=== PATIENT | male | born 1940 | race African-American/Black ===

== ENCOUNTER 2020-06-23 18:40 | Observation (INO) ==
[2020-06-23 19:11] LABS: Basophils % 0.3 % (0.0-0.8); Hematocrit 49.4 VOL% (42.0-52.0); Hemoglobin 16.5 GM/DL (14.0-18.0); Immature Granulocytes % 0.3 %; Immature Granulocytes Absolute 0.01 #; Lymphocytes # 0.7 10*3/uL (1.4-4.0); Lymphocytes % 16.8 % (21.2-54.2); Mean Corpuscular HGB Conc 33.4 GM/DL (32-36); Mean Corpuscular Volume 90.8 FL (87-102); Mean Platelet Volume 10.4 FL (9.6-12.0); Monocytes % 8.8 % (1.7-12.7); Neutrophils % 73.8 % (38.7-73.9); Platelet Count 182 T/CUMM (130-400); Red Blood Count 5.44 MC/CUMM (3.8-5.5); Red Cell Distribution Width 13.3 % (9.3-17.3)
[2020-06-23 19:16] LABS: ABG Base Excess 4.2 MMOL/L (-2.5-2.5); ABG Oxygen Saturation 91.6 % (95-100); ABG PCO2 40.2 MM HG (35-48); ABG PH 7.457 (7.35-7.45); ABG PO2 61.3 MM HG (80-95); ABG TCO2 23.4 MMOL/L (23-27); Allen Test Positive; Pt O2 Delivery Device Room Air
[2020-06-23 19:22] LABS: PT Patient Result 10.9 SECS (9.8-11.9)
[2020-06-23 19:30] LABS: Bilirubin,Total 0.7 MG/DL (0.2-1.0); Calcium 9.1 MG/DL (8.5-10.1); Osmolality,Calculated 275.1 MOS/KG (273-304); Total Protein 8.4 G/DL (5.0-7.5)
[2020-06-23 19:56] LABS: Bilirubin,Urine Negative (Negative); Blood, Urine Moderate mg/dL (Negative); Glucose,Urine (UA) Negative (Negative); Ketones,Urine 5 mg/dL (Negative); Mucus,Urine Many /LPF (Occasional); Nitrite,Urine Negative (Negative); Protein,Urine 100 MG/DL; RBC,Urine 46 /HPF (0-4); Urine Appearance Slightly Hazy (Clear); Urine Color Amber (Yellow); Urine Specific Gravity 1.025 (1.001-1.035); Urine Urobilinogen < 2.0 EU/DL (0.2-1.0); WBC,Urine 3 /HPF (0-6)
[2020-06-23] MEDS ORDERED: AZITHROMYCIN INJ 500 MG in SODIUM CHLORIDE 0.9% 250 ML IV ONE (22:00)
[2020-06-23] MEDS: ENOXAPARIN 40 MG/0.4 ML SYRINGE SUBCUT SCH (22:30)
[2020-06-23] MEDS: ASCORBIC ACID 500 MG TABLET PO SCH (22:30)
[2020-06-23] MEDS: FAMOTIDINE 20 MG TABLET PO SCH (22:30)
[2020-06-23] MEDS ORDERED: MEMANTINE 10 MG TABLET PO SCH (22:30)
[2020-06-23] MEDS ORDERED: cefTRIAXone 1,000 MG in SYRINGE 1 EACH IV SCH (22:30)
[2020-06-23] MEDS ORDERED: DEXTROSE 50% 25 GM/50 ML VIAL IV PRN (23:23)
[2020-06-23] MEDS ORDERED: ONDANSETRON 4 MG/2 ML VIAL IV PRN (23:23)
[2020-06-23] MEDS ORDERED: GLUCAGON 1 MG VIAL IM PRN (23:23)
[2020-06-23] MEDS ORDERED: DOCUSATE SODIUM 100 MG CAPSULE PO PRN (23:23)
[2020-06-23] MEDS ORDERED: ACETAMINOPHEN 325 MG TABLET PO PRN (23:23)
[2020-06-23] MEDS ORDERED: SODIUM CHLORIDE 0.9% 1,000 ML IV SCH (23:30)
[2020-06-23] MEDS: LATANOPROST 0.005% OPH SOLN 2.5 ML BOTTLE BOTH EYES SCH (23:54)
[2020-06-23] MEDS: TIMOLOL 0.5% OPH SOLN 5 ML BOTTLE BOTH EYES SCH (23:54)
[2020-06-24 05:46] LABS: Basophils % 0.3 % (0.0-0.8); Hematocrit 47.7 VOL% (42.0-52.0); Hemoglobin 15.8 GM/DL (14.0-18.0); Immature Granulocytes % 0.3 %; Immature Granulocytes Absolute 0.01 #; Lymphocytes # 0.7 10*3/uL (1.4-4.0); Lymphocytes % 20.2 % (21.2-54.2); Mean Corpuscular HGB Conc 33.1 GM/DL (32-36); Mean Corpuscular Volume 93.5 FL (87-102); Mean Platelet Volume 10.8 FL (9.6-12.0); Monocytes % 10.4 % (1.7-12.7); Neutrophils % 68.8 % (38.7-73.9); Platelet Count 165 T/CUMM (130-400); Red Cell Distribution Width 13.2 % (9.3-17.3); White Blood Count 3.6 T/CUMM (4-12)
[2020-06-24 06:03] LABS: Albumin 2.7 G/DL (3.4-5.0); Bilirubin,Total 0.6 MG/DL (0.2-1.0); Calcium 8.8 MG/DL (8.5-10.1); Osmolality,Calculated 275.7 MOS/KG (273-304); Potassium 4.6 MMOL/L (3.5-5.1); Total Protein 7.7 G/DL (5.0-7.5)
[2020-06-24] MEDS: LEVOFLOXACIN INJ 750 MG in PREMIX 1 EACH IV SCH (08:35)
[2020-06-24] MEDS: FAMOTIDINE 20 MG TABLET PO SCH ×2 (08:39→20:33)
[2020-06-24] MEDS: CHOLECALCIFEROL 1,000 UNIT TABLET PO SCH (08:39)
[2020-06-24] MEDS: ZINC GLUCONATE 50 MG TABLET PO SCH (08:39)
[2020-06-24] MEDS: ESCITALOPRAM 10 MG TABLET PO SCH (08:39)
[2020-06-24] MEDS: amLODIPine 5 MG TABLET PO SCH (08:39)
[2020-06-24] MEDS: MEMANTINE 10 MG TABLET PO SCH ×2 (08:40→20:33)
[2020-06-24] MEDS: SIMVASTATIN 20 MG TABLET PO SCH (08:40)
[2020-06-24] MEDS: ASCORBIC ACID 500 MG TABLET PO SCH ×2 (08:40→20:33)
[2020-06-24] MEDS: CETIRIZINE 10 MG TABLET PO SCH (08:40)
[2020-06-24] MEDS ORDERED: AZITHROMYCIN 250 MG TABLET PO SCH (09:00)
[2020-06-24] MEDS: TIMOLOL 0.5% OPH SOLN 5 ML BOTTLE BOTH EYES SCH ×2 (11:20→20:33)
[2020-06-24] MEDS ORDERED: TUBERCULIN SKIN TEST 0.1 ML SYRINGE INTRADERM ONE (11:55)
[2020-06-24] MEDS: LATANOPROST 0.005% OPH SOLN 2.5 ML BOTTLE BOTH EYES SCH (20:33)
[2020-06-24] MEDS: ENOXAPARIN 40 MG/0.4 ML SYRINGE SUBCUT SCH (20:33)
[2020-06-25 06:19] LABS: Basophils % 0.3 % (0.0-0.8); Hemoglobin 15.2 GM/DL (14.0-18.0); Immature Granulocytes % 0.6 %; Immature Granulocytes Absolute 0.02 #; Lymphocytes # 0.9 10*3/uL (1.4-4.0); Mean Corpuscular HGB Conc 31.7 GM/DL (32-36); Mean Corpuscular Volume 95.6 FL (87-102); Mean Platelet Volume 10.7 FL (9.6-12.0); Monocytes % 11.9 % (1.7-12.7); Neutrophils % 60.2 % (38.7-73.9); Platelet Count 169 T/CUMM (130-400); Red Blood Count 5.02 MC/CUMM (3.8-5.5); Red Cell Distribution Width 13.3 % (9.3-17.3); White Blood Count 3.4 T/CUMM (4-12)
[2020-06-25 06:43] LABS: Albumin 2.6 G/DL (3.4-5.0); Bilirubin,Total 0.8 MG/DL (0.2-1.0); Calcium 8.8 MG/DL (8.5-10.1); Osmolality,Calculated 274.7 MOS/KG (273-304); Potassium 3.9 MMOL/L (3.5-5.1); Total Protein 7.3 G/DL (5.0-7.5)
[2020-06-25 06:47] LABS: Atypical Lymphocytes Few; Band Neutrophils 1 % (0-10); Eosinophils 1 % (0-10); Hypochromasia 1+; Lymphocytes 27 % (20-55); Microcytosis 1+; Platelet Estimate Adequate; Segmented Neutrophils 64 % (50-85); Total Cells Counted 100
[2020-06-25 07:01] LABS: Ferritin 878.9 ng/ml (26-388)
[2020-06-25] MEDS: LEVOFLOXACIN INJ 750 MG in PREMIX 1 EACH IV SCH (09:38)
[2020-06-25] MEDS: FAMOTIDINE 20 MG TABLET PO SCH ×2 (09:39→20:10)
[2020-06-25] MEDS: ESCITALOPRAM 10 MG TABLET PO SCH (09:39)
[2020-06-25] MEDS: MEMANTINE 10 MG TABLET PO SCH ×2 (09:39→20:10)
[2020-06-25] MEDS: guaiFENesin/DM ER 600-30 MG TABLET PO PRN (09:39)
[2020-06-25] MEDS: amLODIPine 5 MG TABLET PO SCH (09:39)
[2020-06-25] MEDS: ZINC GLUCONATE 50 MG TABLET PO SCH (09:39)
[2020-06-25] MEDS: CETIRIZINE 10 MG TABLET PO SCH (09:39)
[2020-06-25] MEDS: ASCORBIC ACID 500 MG TABLET PO SCH ×2 (09:39→20:10)
[2020-06-25] MEDS: CHOLECALCIFEROL 1,000 UNIT TABLET PO SCH (09:40)
[2020-06-25] MEDS: SIMVASTATIN 20 MG TABLET PO SCH (09:40)
[2020-06-25] MEDS: TIMOLOL 0.5% OPH SOLN 5 ML BOTTLE BOTH EYES SCH ×2 (09:40→20:10)
[2020-06-25] MEDS: ENOXAPARIN 40 MG/0.4 ML SYRINGE SUBCUT SCH (20:10)
[2020-06-25] MEDS: LATANOPROST 0.005% OPH SOLN 2.5 ML BOTTLE BOTH EYES SCH (20:10)
[2020-06-26 07:27] LABS: Ferritin 901.7 ng/ml (26-388)
[2020-06-26] MEDS: CHOLECALCIFEROL 1,000 UNIT TABLET PO SCH (10:52)
[2020-06-26] MEDS: amLODIPine 5 MG TABLET PO SCH (10:52)
[2020-06-26] MEDS: ESCITALOPRAM 10 MG TABLET PO SCH (10:53)
[2020-06-26] MEDS: guaiFENesin/DM ER 600-30 MG TABLET PO PRN (10:53)
[2020-06-26] MEDS: ASCORBIC ACID 500 MG TABLET PO SCH (10:53)
[2020-06-26] MEDS: ZINC GLUCONATE 50 MG TABLET PO SCH (10:53)
[2020-06-26] MEDS: MEMANTINE 10 MG TABLET PO SCH (10:53)
[2020-06-26] MEDS: CETIRIZINE 10 MG TABLET PO SCH (10:53)
[2020-06-26] MEDS: FAMOTIDINE 20 MG TABLET PO SCH (10:54)
[2020-06-26] MEDS: SIMVASTATIN 20 MG TABLET PO SCH (10:54)
[2020-06-26] MEDS: TIMOLOL 0.5% OPH SOLN 5 ML BOTTLE BOTH EYES SCH (10:54)
[2020-06-26] MEDS ORDERED: LEVOFLOXACIN 500 MG TABLET PO SCH (11:00)
[2020-06-26 11:36] VITALS: BP 127/78
== END 2020-06-26 13:50 | disposition home health service (06) ==
LOC: N.ED 18:40 → N.2E 18:40
PROVIDERS: ADMIT Internal Medicine; ATTEND Internal Medicine